=== PATIENT | female | born 1940 | race Caucasian/White ===

== ENCOUNTER 2017-09-01 09:14 | Outpatient (CLI) | payer MEDICARE | END 2017-09-01 09:15 | disposition home or self-care (01) | LOC: BICMAMMO 09:14 | PROVIDERS: ATTEND Internal Medicine | DX: Z12.31 Encounter for screening mammogram for malignant neoplasm of breast (principal) | CPT/HCPCS: 77063; 77067 ==

== ENCOUNTER 2017-11-27 14:07 | Outpatient (CLI) | payer MEDICARE ==
[2017-11-27 15:03] LABS: #Eosinphils 0.3 thou/uL (0.0-0.7); #Lymphocytes 2.5 thou/uL (1.20-3.40); #Monocytes 0.8 thou/uL (0.11-0.59); #Neutrophils 5.6 thou/uL (1.40-6.50); %Basophils 0.5 % (0.0-1.0); %Eosinophils 2.9 % (0.0-10.0); %Lymphocytes 27.3 % (21.0-51.0); %Monocytes 8.5 % (0.0-10.0); %Neutrophils 60.9 % (42.0-75.0); Hemoglobin 13.2 g/dL (12.0-16.0); Mean Corpuscular HGB CONC 34.5 g/dL (32.0-36.0); Mean Corpuscular Hemoglobin 33.5 pg (27.0-31.0); Mean Corpuscular Volume 97.3 fL (78.0-98.0); Mean Platelet Volume 8.3 fL (7.4-10.4); Platelet Count 235 thou/uL (130-400); RBC Distribution Width 12.9 % (11.5-14.5); Red Blood Cell (RBC) Count 3.93 mill/uL (4.20-5.40); White Blood Cell (WBC) Count 9.1 thou/uL (4.8-10.8)
[2017-11-27 15:23] LABS: ALT (SGPT) 16 U/L (8-55); AST (SGOT) 20 U/L (5-34); Albumin 3.8 g/dL (3.4-4.8); Alkaline Phosphatase 78 U/L (40-150); Anion Gap 12 mmol/L (10-20); BUN (Urea Nitrogen) 25 mg/dL (9.8-20.1); Bilirubin, Total 0.4 mg/dL (0.2-1.2); Calc. Creatinine Clearance 0 mL/min (70-130); Calcium 9.5 mg/dL (7.8-10.44); Carbon Dioxide 26 mmol/L (23-31); Chloride 105 mmol/L (98-107); Estimated GFR-MDRD 35; Globulin 2.9 g/dL (2.4-3.5); Glucose 91 mg/dL (83-110); Potassium 4.3 mmol/L (3.5-5.1); Protein, Total 6.7 g/dL (6.0-8.3); Sodium 139 mmol/L (136-145)
== END 2017-11-27 14:08 | disposition home or self-care (01) ==
LOC: LABBT 14:07
PROVIDERS: ATTEND Internal Medicine Cardiovascular Disease
DX: Z01.812 Encounter for preprocedural laboratory examination (principal); R94.39 Abnormal result of other cardiovascular function study
CPT/HCPCS: 80053; 85025

== ENCOUNTER → 2017-12-03 | Day surgery (SDC) | payer MEDICARE ==
[2017-11-27 14:13] VITALS: BMI 29.2
[~2017-12-03] MED LIST: Fentanyl 100 MCG/2 ML VIAL ONE; Heparin 0 ML ONE; Heparin 10,000 UNITS/1 ML VIAL ONE; Iopamidol 370 76% 100 ML VIAL ONE; Iopamidol 370 76% 50 ML VIAL FS ONE; Midazolam HCl 2 mg/2 ml Vial ONE; Protamine Sulfate 50 MG/5 ML VIAL ONE
[2017-12-03 07:13] LABS: ALT (SGPT) 15 U/L (8-55); AST (SGOT) 20 U/L (5-34); Albumin 3.7 g/dL (3.4-4.8); Alkaline Phosphatase 75 U/L (40-150); Anion Gap 11 mmol/L (10-20); BUN (Urea Nitrogen) 30 mg/dL (9.8-20.1); Bilirubin, Total 0.4 mg/dL (0.2-1.2); Calc. Creatinine Clearance 41 mL/min (70-130); Calcium 9.4 mg/dL (7.8-10.44); Carbon Dioxide 27 mmol/L (23-31); Chloride 107 mmol/L (98-107); Estimated GFR-MDRD 42; Globulin 2.6 g/dL (2.4-3.5); Glucose 90 mg/dL (83-110); Potassium 4.2 mmol/L (3.5-5.1); Protein, Total 6.3 g/dL (6.0-8.3); Sodium 141 mmol/L (136-145)
--- NOTE | 2017-12-03 12:57 | DIS ---
This is a discharge summary after undergoing outpatient cardiac catheterization. DISCHARGE DIAGNOSES: 1. Minimal coronary artery disease. 2. Nonsustained ventricular tachycardia seen on pacemaker with reduction from 3 -4 seconds to 1 second on metoprolol 25. 3. Status post dual-pacemaker. 4. Hypertension. 5. Diastolic dysfunction. 6. Hypercholesterolemia. 7. Obstructive sleep apnea. 8. Anxiety. 9. Depressive disorder. 10. Venous insufficiency. 11. Chronic back pain. DISCHARGE MEDICATIONS: Metoprolol will be increased from 25 to 50 mg ER q.a.m. Atorvastatin will be increased from 40 to p.o. 80 mg daily. Continue other medications; aspirin 81 daily, furosemide 20 mg q.a.m., biotin 5000 mcg daily, calcium carbonate, vitamin B12 1000 mcg daily, gabapentin 300 mg q.p.m., lorazepam 1 mg q.8 hours p.r.n., multivitamin daily, naproxen 500 mg b.i.d., nifedipine 60 mg q.a.m., pantoprazole 40 mg daily, valsartan 320 daily, venlafaxine 25 mg daily. DISCHARGE DISPOSITION: The patient will be seen in 2 months with a fasting lipid profile and complete metabolic profile. Pacemaker will be rechecked to assess burden of nonsustained ventricular tachycardia. HOSPITAL COURSE: Ms. Irizarry underwent a cardiac PET scan which was abnormal. This was performed for finding of nonsustained ventricular tachycardia on her pacemaker. At catheterization, she had a 20% mid circumflex, 20% proximal RCA, and 20% distal RCA. Left ventricular function was normal with ejection fraction of 50-55%. Metoprolol will be increased from 25 to 50 daily in the hopes of further suppression of her nonsustained ventricular tachycardia. Her last to LDLs were 95 and 104. With coronary artery disease the goal would be less than 70 and so atorvastatin was increased from 40 to 80 mg daily. Also, she was strongly encouraged to follow a low cholesterol diet. [facility]
== END ==
LOC: CCL 05:56
PROVIDERS: ATTEND Internal Medicine Cardiovascular Disease
PROC: 4A023N7 Measurement of Cardiac Sampling and Pressure, Left Heart, Percutaneous Approach (ICD-10-PCS; principal; 2017-12-03)
PROC: B2111ZZ Fluoroscopy of Multiple Coronary Arteries using Low Osmolar Contrast (ICD-10-PCS; 2017-12-03)
DX: I25.10 Atherosclerotic heart disease of native coronary artery without angina pectoris (principal); I10 Essential (primary) hypertension; E78.5 Hyperlipidemia, unspecified; E78.00 Pure hypercholesterolemia, unspecified; I47.2 Ventricular tachycardia; G47.33 Obstructive sleep apnea (adult) (pediatric); F41.9 Anxiety disorder, unspecified; F32.9 Major depressive disorder, single episode, unspecified; I87.2 Venous insufficiency (chronic) (peripheral); G89.29 Other chronic pain; M54.9 Dorsalgia, unspecified; Z79.82 Long term (current) use of aspirin; Z79.899 Other long term (current) drug therapy; Z88.0 Allergy status to penicillin; Z88.1 Allergy status to other antibiotic agents; Z88.5 Allergy status to narcotic agent; Z88.8 Allergy status to other drugs, medicaments and biological substances; Z95.0 Presence of cardiac pacemaker
CPT/HCPCS: 80053; 85347; 93458; C1769; 99152; J1644; J2250; J2720; J3010

== ENCOUNTER 2018-03-19 10:17 | Outpatient (CLI) | payer MEDICARE ==
--- NOTE | 2018-03-19 10:45 | BD ---
DEXA BONE DENSITY STUDY: Date: 03/19/18 HISTORY: Postmenopausal. FINDINGS: Left Femoral Neck: 0.539 T-Score: -2.8 Total Femur: 0.781 T-Score: -1.3 Left Forearm: Ulnar distal 0.377 T-Score: -1.1 Mid 0.472 T-Score: -2.5 1/3 0.580 T-Score: -1.9 Total 0.456 T-Score: -2.3 IMPRESSION: Osteopenia of left forearm and osteoporosis of left femoral neck. POS: [facility]
== END 2018-03-19 10:18 | disposition home or self-care (01) ==
LOC: BICMAMMO 10:17
PROVIDERS: ATTEND Internal Medicine Rheumatology
DX: Z13.820 Encounter for screening for osteoporosis (principal); M81.0 Age-related osteoporosis without current pathological fracture; M85.832 Other specified disorders of bone density and structure, left forearm; M85.852 Other specified disorders of bone density and structure, left thigh
CPT/HCPCS: 77080

== ENCOUNTER 2018-10-02 20:44 | Emergency (ER) | payer MEDICARE ==
--- NOTE | 2018-10-02 21:52 | CT ---
CT of abdomen and pelvis: 10/02/2018 COMPARISON: 08/14/2013 HISTORY: Right-sided abdominal pain TECHNIQUE: Axial CT imaging at 5 mm intervals from lung bases through pubic symphysis without contras t. Coronal reformatted imaging obtained. FINDINGS: Lack of contrast media limits assessment of the viscera, bowel, vascular structures, and fo r lymphadenopathy. There is a transvenous pacing device present. There is a right total hip arthroplasty. Multilevel pos toperative hardware noted within the lumbar spine. The imaged lung bases are unremarkable. Limited assessment of the liver, gallbladder, spleen, pancrea s, adrenal glands, and kidneys is unremarkable. No nephrolithiasis or hydronephrosis noted on either side. There is extensive diverticulosis of the sigmoid colon. No evidence for diverticulitis, focal bowel i nflammatory change, or bowel obstruction. Hernia mesh noted within the anterior left abdomen. Scattered atherosclerotic calcification of abdomi nal aorta and its branches noted. No acute osseous abnormality. The stomach is mildly distended and fluid-filled. The appendix is nonvisualized. No right lower quadrant inflammatory change is apparent . IMPRESSION: Numerous incidental findings. No free intraperitoneal air, evidence of bowel obstruction, or evidence of obstructive uropathy.
[2018-10-02 22:11] LABS: #Eosinphils 0.3 thou/uL (0.0-0.7); #Lymphocytes 2.6 thou/uL (1.20-3.40); #Monocytes 0.9 thou/uL (0.11-0.59); #Neutrophils 3.9 thou/uL (1.40-6.50); %Eosinophils 3.6 % (0.0-10.0); %Monocytes 11.9 % (0.0-10.0); %Neutrophils 50.6 % (42.0-75.0); Hemoglobin 11.7 g/dL (12.0-16.0); Mean Corpuscular Hemoglobin 31.3 pg (27.0-31.0); Mean Corpuscular Volume 94.8 fL (78.0-98.0); Mean Platelet Volume 7.7 fL (7.4-10.4); Platelet Count 232 thou/uL (130-400); RBC Distribution Width 12.8 % (11.5-14.5); Red Blood Cell (RBC) Count 3.76 mill/uL (4.20-5.40); White Blood Cell (WBC) Count 7.8 thou/uL (4.8-10.8)
[2018-10-02 22:27] LABS: Bacteria/HPF 4+ HPF (None Seen); Bilirubin Negative (Negative); Blood, Urine 1+ (Negative); Glucose, Urine (Dipstick) Normal (Negative); Leukocyte 500 Leu/uL (Negative); Nitrite 2+ (Negative); Protein, Urine (Dipstick) 20 mg/dL (Neg-Trace); Urobilinogen Normal mg/dL (Less than 2); WBC/HPF Greater than 50 HPF (0-3)
[2018-10-02 22:29] LABS: Clarity Cloudy (Clear)
[2018-10-02 22:32] LABS: ALT (SGPT) 31 U/L (8-55); AST (SGOT) 38 U/L (5-34); Albumin 3.4 g/dL (3.4-4.8); Alkaline Phosphatase 76 U/L (40-150); Anion Gap 11 mmol/L (10-20); BUN (Urea Nitrogen) 16 mg/dL (9.8-20.1); Bilirubin, Total 0.4 mg/dL (0.2-1.2); Calc. Creatinine Clearance 0 mL/min (70-130); Carbon Dioxide 23 mmol/L (23-31); Chloride 111 mmol/L (98-107); Estimated GFR-MDRD 49; Globulin 2.3 g/dL (2.4-3.5); Glucose 102 mg/dL (83-110); Lipase 27 U/L (8-78); Potassium 3.5 mmol/L (3.5-5.1); Protein, Total 5.7 g/dL (6.0-8.3); Sodium 141 mmol/L (136-145)
== END 2018-10-02 23:05 | disposition home or self-care (01) ==
LOC: ERS 20:44
DX: N39.0 Urinary tract infection, site not specified (principal); E78.5 Hyperlipidemia, unspecified; K21.9 Gastro-esophageal reflux disease without esophagitis; I10 Essential (primary) hypertension; F32.9 Major depressive disorder, single episode, unspecified; Z79.82 Long term (current) use of aspirin; Z79.899 Other long term (current) drug therapy
CPT/HCPCS: 36415; 74176; 80053; 81003; 81015; 83690; 84484; 85025; 93005

== ENCOUNTER 2018-10-15 14:08 | Outpatient (CLI) | payer MEDICARE ==
--- NOTE | 2018-10-15 16:07 | RAD ---
TWO VIEWS CHEST: Comparison: 11-29-13 History: Cough. FINDINGS: Two views of the chest shows normal sized cardiomediastinal silhouette. The pacemaker is unchanged in position. There is no evidence of consolidation, mass, or pleural effusion. Hardware is seen in the spine. IMPRESSION: No evidence of acute cardiopulmonary disease. POS: [facility]
== END 2018-10-15 14:09 | disposition home or self-care (01) ==
LOC: BICRAD 14:08
PROVIDERS: ATTEND Internal Medicine
DX: R05 Cough (principal)
CPT/HCPCS: 71046

== ENCOUNTER 2018-10-22 14:24 | Outpatient (CLI) | payer MEDICARE ==
--- NOTE | 2018-10-22 14:53 | MMO ---
Bilateral MAMMO Bilat Screen [facility]. CLINICAL HISTORY: Patient is 77 years old and is seen for screening. The patient has no family history of breast cancer. The patient has no personal history of cancer. VIEWS: The views performed were: bilateral craniocaudal with tomosynthesis and bilateral mediolateral oblique with tomosynthesis. FILMS COMPARED: The present examination has been compared to prior imaging studies performed at [facility] on 07/19/2014, 08/23/2015, 08/27/2016 and 09/01/2017. MAMMOGRAM FINDINGS: There are scattered fibroglandular densities. There are stable benign appearing calcifications seen in both breasts. There are also vascular calcifications. There are no suspicious masses, suspicious calcifications, or new areas of architectural distortion. IMPRESSION: THERE IS NO MAMMOGRAPHIC EVIDENCE OF MALIGNANCY. A ROUTINE FOLLOW-UP MAMMOGRAM IN 1 YEAR IS RECOMMENDED. THE RESULTS OF THIS EXAM WERE SENT TO THE PATIENT. ACR BI-RADS Category 2 - Benign finding MAMMOGRAPHY NOTE: 1. A negative mammogram report should not delay a biopsy if a dominant of clinically suspicious mass is present. 2. Approximately 10% to 15% of breast cancers are not detected by mammography. 3. Adenosis and dense breasts may obscure an underlying neoplasm. Reported by: ERIC GARCÍA MD Electonically Signed: [id number]
== END 2018-10-22 14:25 | disposition home or self-care (01) ==
LOC: BICMAMMO 14:24
PROVIDERS: ATTEND Internal Medicine
DX: Z12.31 Encounter for screening mammogram for malignant neoplasm of breast (principal)
CPT/HCPCS: 77063; 77067

== ENCOUNTER 2018-12-09 14:11 | Outpatient (CLI) | payer MEDICARE ==
--- NOTE | 2018-12-09 15:41 | RAD ---
LEFT HAND THREE VIEWS: 12/09/18 HISTORY: Hand pain and swelling. There are mild osteoarthritic changes of the hand with some mild changes of the triscaphe joint. More pronounced changes of the first carpometacarpal joint spaces are seen. Also minimal osteoarthritic c hanges of the distal interphalangeal joints and PIP joints. IMPRESSION: Mild arthritic changes of the hand. POS: [facility]
--- NOTE | 2018-12-09 15:43 | RAD ---
RIGHT HAND THREE VIEWS: 12/09/18 HISTORY: Hand pain and swelling. No injury. There are moderate arthritic changes of the hand. These include some subchondral cystic changes in so me of the carpal bones and mild arthritic changes of the triscaphe and first carpometacarpal joint sp aces as well as some mild arthritic changes of the interphalangeal joints more pronounced at the DIP level. 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 POS: [facility]
== END 2018-12-09 14:12 | disposition home or self-care (01) ==
LOC: BICRAD 14:11
PROVIDERS: ATTEND Internal Medicine
DX: M19.041 Primary osteoarthritis, right hand (principal)
CPT/HCPCS: 36415; 80053; 82607; 82746; 84443; 85027; 86780

== ENCOUNTER 2019-03-02 11:14 | Emergency (ER) | payer MEDICARE ==
[2019-03-02] MEDS ORDERED: Lidocaine 1% w/Epinephrine 1:100K 20 ML VIAL ONE (13:19)
[2019-03-02] MEDS ORDERED: Bacitracin 1 PK ONE (13:43)
--- NOTE | 2019-03-02 14:19 | RAD ---
LEFT FOREARM 2 VIEWS: Date: 03/02/19 HISTORY: Injury from a fall, laceration. FINDINGS: Soft tissue swelling and injury is noted to the ulnar side of the mid and distal forearm. No evidence for acute fracture or dislocation. No metal density foreign body. IMPRESSION: Soft tissue swelling and injury without fracture, dislocation, or metal foreign body. POS: [facility]
== END 2019-03-02 13:58 | disposition home or self-care (01) ==
LOC: ERS 11:14
DX: S51.812A Laceration without foreign body of left forearm, initial encounter (principal); R05 Cough; I10 Essential (primary) hypertension; K21.9 Gastro-esophageal reflux disease without esophagitis; M19.90 Unspecified osteoarthritis, unspecified site; F41.9 Anxiety disorder, unspecified; W18.2XXA Fall in (into) shower or empty bathtub, initial encounter
CPT/HCPCS: 12002

== ENCOUNTER 2019-04-05 15:27 | Outpatient (CLI) | payer MEDICARE ==
--- NOTE | 2019-04-05 16:15 | BD ---
DEXA bone density scan: 04/05/2019 COMPARISON: None HISTORY: Postmenopausal female undergoing screening for osteoporosis. BMD (g/cm2) T-SCORE Forearm Distal third 0.378 -1.1 Middle third 0.466 -2.6 Proximal third 0.588 -1.8 Total 0.454 -2.3 Femoral neck 0.545 -2.7 Total proximal femur 0.771 -1.4 FRAX fracture risk assessment tool was not report as some T-Scores are at or below -2.5 IMPRESSION: Femoral neck osteoporosis correlating with a high risk for fracture. Transcribed Date/Time: 04/05/2019 4:45 PM
== END 2019-04-05 15:28 | disposition home or self-care (01) ==
LOC: BICMAMMO 15:27
PROVIDERS: ATTEND Internal Medicine Rheumatology
DX: M81.0 Age-related osteoporosis without current pathological fracture (principal)
CPT/HCPCS: 77080

== ENCOUNTER 2020-04-23 09:29 | Outpatient (CLI) | payer MEDICARE ==
--- NOTE | 2020-04-23 10:09 | BD ---
EXAM: DEXA bone density examination HISTORY: 79-year-old postmenopausal female for screening COMPARISON: 04/05/2019 FINDINGS: Left distal third forearm--bone mineral density0.588; T score -1.8 Total left distal forearm--bone mineral density 0.464; T score -2.1 Left femoral neck--bone mineral density0.559; T score -2.6 Total proximal left femur--bone mineral density 0.781; T score -1.3 IMPRESSION: Osteoporosis. When compared to the prior examination, the bone density has not changed si gnificantly.
== END 2020-04-23 09:30 | disposition home or self-care (01) ==
LOC: BICMAMMO 09:29
PROVIDERS: ATTEND Internal Medicine Rheumatology
DX: M81.0 Age-related osteoporosis without current pathological fracture (principal)
CPT/HCPCS: 77080

== ENCOUNTER 2020-10-03 09:02 | Outpatient (CLI) | payer MEDICARE | END 2020-10-03 09:03 | disposition home or self-care (01) | LOC: RAD 09:02 | PROVIDERS: ATTEND Orthopaedic Surgery | DX: M75.42 Impingement syndrome of left shoulder (principal) | CPT/HCPCS: 23350; J0171; J2001; Q9967 ==

== ENCOUNTER 2021-04-22 15:23 | Outpatient (CLI) | payer MEDICARE | END 2021-04-22 15:24 | disposition home or self-care (01) | LOC: BICMAMMO 15:23 | PROVIDERS: ATTEND Internal Medicine Rheumatology | DX: M81.0 Age-related osteoporosis without current pathological fracture (principal); M85.832 Other specified disorders of bone density and structure, left forearm | CPT/HCPCS: 77080 ==

== ENCOUNTER 2021-04-25 14:21 | Outpatient (CLI) | payer MEDICARE | END 2021-04-25 14:22 | disposition home or self-care (01) | LOC: BICRAD 14:21 | PROVIDERS: ATTEND Internal Medicine Rheumatology | DX: M54.2 Cervicalgia (principal); M54.50 Low back pain, unspecified; M47.812 Spondylosis without myelopathy or radiculopathy, cervical region; M53.2X2 Spinal instabilities, cervical region; M47.816 Spondylosis without myelopathy or radiculopathy, lumbar region; M43.16 Spondylolisthesis, lumbar region | CPT/HCPCS: 72050; 72100 ==

== ENCOUNTER 2021-09-04 09:01 | Outpatient (CLI) | payer MEDICARE | END 2021-09-04 09:02 | disposition home or self-care (01) | LOC: LABBT 09:01 | PROVIDERS: ATTEND Internal Medicine Cardiovascular Disease | DX: Z01.818 Encounter for other preprocedural examination (principal); I48.0 Paroxysmal atrial fibrillation; Z20.822 Contact with and (suspected) exposure to COVID-19; Z01.812 Encounter for preprocedural laboratory examination | CPT/HCPCS: 80053; 81003; 82565; 85027; 85610; 85730; 86850; 86900; 86901; 93005; 93010; U0003; U0005 ==

== ENCOUNTER 2021-09-04 09:15 | Inpatient (IN) | payer MEDICARE ==
[2021-09-04 10:15] LABS: Bilirubin Neg (Negative); Blood, Urine 25 (Negative); Clarity Cloudy (Clear); Glucose, Urine (Dipstick) Normal (Negative); Ketone, Urine Negative (Negative); Leukocyte 500 (Negative); Nitrite Positive (Negative); Protein, Urine (Dipstick) 15 mg/dl (Neg-Trace); Specific Gravity, Urine 1.015 (1.002-1.036); Urobilinogen Normal mg/dL (Less than 2)
[2021-09-04 10:32] LABS: Hemoglobin 11.2 g/dL (12.0-15.5); Mean Corpuscular HGB CONC 33.3 g/dL (32.0-36.0); Mean Corpuscular Hemoglobin 31.8 pg (27.0-33.0); Mean Corpuscular Volume 95.5 fl (81.6-98.3); Mean Platelet Volume 10.9 fl (7.4-10.4); Platelet Count 207 10x3/uL (150-450); RBC Distribution Width 14.2 % (11.5-14.5); Red Blood Cell (RBC) Count 3.52 10x6/uL (3.90-5.03); White Blood Cell (WBC) Count 7.2 10x3/uL (3.5-10.5)
[2021-09-04 10:35] LABS: INR-International Normal Ratio 1.1; PTT 40.3 sec (22.0-33.0); Prothrombin Time 12.1 sec (9.5-12.1)
[2021-09-04 10:58] LABS: ALT (SGPT) 33 U/L (8-55); AST (SGOT) 40 U/L (5-34); Albumin 3.9 g/dL (3.4-4.8); Alkaline Phosphatase 77 U/L (40-110); Anion Gap 13 mmol/L (10-20); BUN (Urea Nitrogen) 17 mg/dL (9.8-20.1); Bilirubin, Total 0.5 mg/dL (0.2-1.2); Calc. Creatinine Clearance 0 mL/min (70-130); Calcium 9.5 mg/dL (7.8-10.44); Carbon Dioxide 27 mmol/L (23-31); Chloride 105 mmol/L (98-107); Globulin 2.5 g/dL (2.4-3.5); Glucose 109 mg/dL (83-110); Potassium 4.1 mmol/L (3.5-5.1); Protein, Total 6.4 g/dL (5.8-8.1); Sodium 141 mmol/L (136-145)
[2021-09-04 13:10] VITALS: BMI 30.2
[2021-09-09] MEDS ORDERED: Heparin 10,000 UNITS/ 10 ML VIAL ONE (11:25)
[2021-09-09] MEDS ORDERED: Protamine Sulfate 50 MG/5 ML VIAL ONE (11:25)
[2021-09-09] MEDS ORDERED: Clindamycin/D5W 900 mg/50 ml Premix Bag ONE (11:25)
[2021-09-09] MEDS ORDERED: PROPOFOL 200 MG/20 ML VIAL ONE (11:57)
[2021-09-09] MEDS ORDERED: PHENYLEPHRINE-NS 100 MCG/ML 10 ML SYRINGE ONE (11:57)
[2021-09-09] MEDS ORDERED: Dexamethasone 20 MG/5 ML VIAL ONE (11:57)
[2021-09-09] MEDS ORDERED: Rocuronium Bromide 10 MG/ML (10ML VIAL) ONE (11:57)
[2021-09-09] MEDS ORDERED: Ketorolac Tromethamine 30 MG/ML VIAL ONE (11:57)
[2021-09-09] MEDS ORDERED: Lidocaine 1% PF 5 ML VIAL ONE (11:57)
[2021-09-09] MEDS ORDERED: Glycopyrrolate 0.2 MG/ML 5 ML SYRINGE ONE (11:57)
[2021-09-09] MEDS ORDERED: Ondansetron PF 4 MG/2 ML Vial ONE (11:57)
[2021-09-09] MEDS ORDERED: SUGAMMADEX SODIUM 200 MG/2 ML VIAL ONE (12:56)
[2021-09-09] MEDS ORDERED: Promethazine HCl 25 MG/ML VIAL ONE (13:37)
[2021-09-09] MEDS ORDERED: Iopamidol 370 76% 100 ML VIAL ONE (13:46)
== END 2021-09-09 16:05 | disposition home or self-care (01) | DRG 274 ==
LOC: SURG A 09-09 08:15
PROVIDERS: ADMIT Internal Medicine Cardiovascular Disease; ATTEND Internal Medicine Cardiovascular Disease
PROC: 02L73DK Occlusion of Left Atrial Appendage with Intraluminal Device, Percutaneous Approach (ICD-10-PCS; principal; 2021-09-09)
PROC: B24BZZ4 Ultrasonography of Heart with Aorta, Transesophageal (ICD-10-PCS; 2021-09-09)
PROC: B24BZZ4 Ultrasonography of Heart with Aorta, Transesophageal (ICD-10-PCS; 2021-09-09)
DX: I48.0 Paroxysmal atrial fibrillation (principal); Z00.6 Encounter for examination for normal comparison and control in clinical research program; Z20.822 Contact with and (suspected) exposure to COVID-19; I08.1 Rheumatic disorders of both mitral and tricuspid valves; Z96.649 Presence of unspecified artificial hip joint; Z79.01 Long term (current) use of anticoagulants; Z87.19 Personal history of other diseases of the digestive system; Z79.899 Other long term (current) drug therapy; Z79.82 Long term (current) use of aspirin; Z88.1 Allergy status to other antibiotic agents; Z88.5 Allergy status to narcotic agent; Z88.0 Allergy status to penicillin; Z88.8 Allergy status to other drugs, medicaments and biological substances; Z90.89 Acquired absence of other organs; Z95.0 Presence of cardiac pacemaker; Z98.890 Other specified postprocedural states; Z85.828 Personal history of other malignant neoplasm of skin
CPT/HCPCS: 33340; 36430; 80053; 81003; 85027; 85347; 85610; 85730; 86850; 86900; 86901; 93306; 93312; C1759; C1760; J1100; J1644; J1885; J2405; J2550; J2704; J2720; J3490; Q9967; U0003; U0005

== ENCOUNTER 2021-10-28 11:01 | Outpatient (CLI) | payer MEDICARE ==
[2021-10-28 13:25] LABS: Hemoglobin 11.4 g/dL (12.0-15.5); Mean Corpuscular HGB CONC 32.7 g/dL (32.0-36.0); Mean Corpuscular Hemoglobin 31.5 pg (27.0-33.0); Mean Corpuscular Volume 96.4 fl (81.6-98.3); Mean Platelet Volume 11.2 fl (7.4-10.4); Platelet Count 217 10x3/uL (150-450); RBC Distribution Width 14.7 % (11.5-14.5); Red Blood Cell (RBC) Count 3.62 10x6/uL (3.90-5.03); White Blood Cell (WBC) Count 6.7 10x3/uL (3.5-10.5)
[2021-10-28 14:08] LABS: Anion Gap 13 mmol/L (10-20); BUN (Urea Nitrogen) 17 mg/dL (9.8-20.1); Calc. Creatinine Clearance 0 mL/min (70-130); Calcium 9.3 mg/dL (7.8-10.44); Carbon Dioxide 26 mmol/L (23-31); Chloride 107 mmol/L (98-107); Estimated GFR 49; Glucose 95 mg/dL (83-110); Potassium 4.6 mmol/L (3.5-5.1); Sodium 141 mmol/L (136-145)
== END 2021-10-28 11:02 | disposition home or self-care (01) ==
LOC: LABBT 11:01
PROVIDERS: ATTEND Internal Medicine Cardiovascular Disease
DX: Z01.812 Encounter for preprocedural laboratory examination (principal); Z20.822 Contact with and (suspected) exposure to COVID-19
CPT/HCPCS: 80048; 85027; 87811

== ENCOUNTER 2021-11-01 06:03 | Day surgery (SDC) | payer MEDICARE ==
[2021-10-31 09:29] VITALS: BMI 28.3
[2021-11-01] MEDS ORDERED: Propofol 500 MG/50 ML VIAL ONE (07:09)
[2021-11-01] MEDS ORDERED: Ketamine 50 MG/ML (10ML VIAL) ONE (07:09)
[2021-11-02] MEDS ORDERED: Clopidogrel Bisulfate 75 MG TAB PO SCH (09:00)
== END 2021-11-01 09:51 | disposition home or self-care (01) ==
LOC: SDC 06:03
PROVIDERS: ATTEND Internal Medicine Cardiovascular Disease
PROC: B24BZZ4 Ultrasonography of Heart with Aorta, Transesophageal (ICD-10-PCS; principal; 2021-11-01)
DX: I48.0 Paroxysmal atrial fibrillation (principal); I08.0 Rheumatic disorders of both mitral and aortic valves; I70.0 Atherosclerosis of aorta; I49.5 Sick sinus syndrome; E78.5 Hyperlipidemia, unspecified; K58.9 Irritable bowel syndrome, unspecified; M10.9 Gout, unspecified; Z79.02 Long term (current) use of antithrombotics/antiplatelets; Z79.82 Long term (current) use of aspirin; Z79.83 Long term (current) use of bisphosphonates; Z79.899 Other long term (current) drug therapy; Z88.0 Allergy status to penicillin; Z88.1 Allergy status to other antibiotic agents; Z88.5 Allergy status to narcotic agent; Z88.8 Allergy status to other drugs, medicaments and biological substances; Z86.73 Personal history of transient ischemic attack (TIA), and cerebral infarction without residual deficits; Z95.0 Presence of cardiac pacemaker
CPT/HCPCS: 93312; J2704

== ENCOUNTER 2022-04-04 06:27 | Day surgery (SDC) | payer MEDICARE ==
[2022-04-03 09:47] VITALS: BMI 27.0
[2022-04-04] MEDS ORDERED: PROPOFOL 20 ML ONE (08:20)
== END 2022-04-04 10:05 | disposition home or self-care (01) ==
LOC: SDC 06:27
PROVIDERS: ATTEND Internal Medicine Cardiovascular Disease
PROC: B246ZZ4 Ultrasonography of Right and Left Heart, Transesophageal (ICD-10-PCS; principal; 2022-04-04)
DX: I48.0 Paroxysmal atrial fibrillation (principal); I08.1 Rheumatic disorders of both mitral and tricuspid valves; Z79.02 Long term (current) use of antithrombotics/antiplatelets; Z79.82 Long term (current) use of aspirin; Z79.83 Long term (current) use of bisphosphonates; Z79.899 Other long term (current) drug therapy; Z88.0 Allergy status to penicillin; Z88.1 Allergy status to other antibiotic agents; Z88.5 Allergy status to narcotic agent; Z88.8 Allergy status to other drugs, medicaments and biological substances; Z91.013 Allergy to seafood; Z95.818 Presence of other cardiac implants and grafts
CPT/HCPCS: 93312; J2704

== ENCOUNTER 2022-05-20 13:25 | Outpatient (CLI) | payer MEDICARE | END 2022-05-20 13:26 | disposition home or self-care (01) | LOC: BICMAMMO 13:25 | PROVIDERS: ATTEND Internal Medicine Rheumatology | DX: M81.0 Age-related osteoporosis without current pathological fracture (principal) | CPT/HCPCS: 77080 ==

== ENCOUNTER 2022-08-19 19:30 | Outpatient (CLI) | payer MEDICARE | END 2022-08-19 19:31 | disposition home or self-care (01) | LOC: SLEEPLAB 19:30 | PROVIDERS: ATTEND Internal Medicine Critical Care Medicine | DX: G47.33 Obstructive sleep apnea (adult) (pediatric) (principal) | CPT/HCPCS: 95810 ==

== ENCOUNTER 2022-11-20 19:00 | Outpatient (CLI) | payer MEDICARE | END 2022-11-20 19:01 | disposition home or self-care (01) | LOC: SLEEPLAB 19:00 | PROVIDERS: ATTEND Internal Medicine Critical Care Medicine | DX: G47.33 Obstructive sleep apnea (adult) (pediatric) (principal); R06.83 Snoring; G47.10 Hypersomnia, unspecified; E66.9 Obesity, unspecified; G47.61 Periodic limb movement disorder; Z68.25 Body mass index [BMI] 25.0-25.9, adult | CPT/HCPCS: 95811 ==

== ENCOUNTER 2022-11-29 09:50 | Emergency (ER) | payer MEDICARE ==
[2022-11-29] MEDS ORDERED: Boostrix 0.5 ML (Tdap) VIAL (>/=7 yrs of age) ONE (11:49)
[2022-11-29] MEDS ORDERED: Ketorolac Tromethamine 30 MG/ML VIAL ONE (11:49)
== END 2022-11-29 13:03 | disposition home or self-care (01) ==
LOC: ERS 09:50
DX: S51.811A Laceration without foreign body of right forearm, initial encounter (principal); S01.111A Laceration without foreign body of right eyelid and periocular area, initial encounter; I10 Essential (primary) hypertension; E78.5 Hyperlipidemia, unspecified; K21.9 Gastro-esophageal reflux disease without esophagitis; Z79.899 Other long term (current) drug therapy; Z23 Encounter for immunization; W01.10XA Fall on same level from slipping, tripping and stumbling with subsequent striking against unspecified object, initial encounter
CPT/HCPCS: 70450; 70486; 90471; 90715; 96372; J1885

== ENCOUNTER 2023-10-07 12:54 | Outpatient (CLI) | payer MEDICARE | END 2023-10-07 12:55 | disposition home or self-care (01) | LOC: BICRAD 12:54 | PROVIDERS: ATTEND Nurse Practitioner Family | DX: I48.0 Paroxysmal atrial fibrillation (principal) | CPT/HCPCS: 71046 ==

== ENCOUNTER 2024-04-12 14:31 | Observation (INO) | payer MEDICARE ==
[~2024-04-12 14:31] MED LIST changes: -Fentanyl 100 MCG/2 ML VIAL ONE; -Heparin 0 ML ONE; -Heparin 10,000 UNITS/1 ML VIAL ONE; -Iopamidol 370 76% 100 ML VIAL ONE; -Iopamidol 370 76% 50 ML VIAL FS ONE; +Iopamidol-370 76% 500 ML MDV (1 ML CHARGE) ONE; -Midazolam HCl 2 mg/2 ml Vial ONE; -Protamine Sulfate 50 MG/5 ML VIAL ONE
[2024-04-12 14:47] LABS: #Basophils 0.06 10x3/uL (0.0-0.2); %Basophils 0.8 % (0.0-1.0); %Eosinophils 1.3 % (0.0-10.0); %Lymphocytes 19.5 % (21.0-51.0); %Monocytes 8.9 % (0.0-10.0); %Neutrophils 68.2 % (42.0-75.0); Hematocrit 37.7 % (36.0-47.0); Hemoglobin 12.9 g/dL (12.0-16.0); Mean Corpuscular HGB CONC 34.2 g/dL (32.0-36.0); Mean Corpuscular Hemoglobin 32.2 pg (27.0-31.0); Mean Platelet Volume 10.1 fL (7.4-10.4); Platelet Count 227 10x3/uL (130-400); RBC Distribution Width 14.6 % (11.5-14.5); Red Blood Cell (RBC) Count 4.01 mill/uL (4.20-5.40)
[2024-04-12 15:10] LABS: INR-International Normal Ratio 1.1; PTT 30.4 sec (22.9-36.1); Prothrombin Time 14.6 sec (12.0-14.7)
[2024-04-12 15:14] LABS: Alcohol Less than 10.0 mg/dL (Less than 10)
[2024-04-12 15:17] LABS: ALT (SGPT) 22 U/L (Less than 34); AST (SGOT) 35 U/L (11-34); Albumin 3.4 g/dL (3.1-4.5); Alkaline Phosphatase 103 U/L (40-110); Anion Gap 11 mmol/L (10-20); BUN (Urea Nitrogen) 16 mg/dL (9.8-20.1); Bilirubin, Total 0.7 mg/dL (0.3-1.2); Calc. Creatinine Clearance 0 mL/min (70-130); Calcium 9.2 mg/dL (7.8-10.44); Carbon Dioxide 25 mmol/L (23-31); Chloride 109 mmol/L (98-107); Estimated GFR 54; Globulin 3.3 g/dL (2.4-3.5); Glucose 105 mg/dL (83-110); Lipase 9 U/L (8-78); Potassium 4.2 mmol/L (3.5-5.1); Protein, Total 6.7 g/dL (5.8-8.1); Sodium 141 mmol/L (136-145)
[2024-04-12 15:19] LABS: Troponin I Less than 0.010 ng/mL (< 0.028)
[2024-04-12] MEDS ORDERED: Acetaminophen 500 MG TAB ONE (16:00)
[2024-04-12] MEDS ORDERED: Ondansetron PF 4 MG/2 ML Vial IVP PRN (18:57)
[2024-04-12 18:58] LABS: Bacteria/HPF None Seen HPF (None Seen); Bilirubin Negative (Negative); Blood, Urine Negative (Negative); CAUTI Indications for Culture Pelvic or flank pain; Clarity Clear (Clear); Glucose, Urine (Dipstick) Normal (Negative); Ketone, Urine 10 mg/dL (Negative); Leukocyte Negative Leu/uL (Negative); Nitrite Negative (Negative); Protein, Urine (Dipstick) Negative (Neg-Trace); RBC/HPF 0-3 HPF (0-3); Squamous Epithelial 0-3 HPF (0-3); Urobilinogen Normal mg/dL (Less than 2); WBC/HPF 0-3 HPF (0-3); pH, Urine 7.5 (5.0-9.0)
[2024-04-12 18:59] LABS: Urine Culture Reflex No No
[2024-04-12 19:07] LABS: Amphetamine Not Detected (NotDetected); Barbiturates Screen Not Detected (NotDetected); Benzodiazepine Screen Not Detected (NotDetected); Cocaine Metabolite Screen Not Detected (NotDetected); Methadone Not Detected (NotDetected); Methamphetamine Not Detected (NotDetected); Opiate Screen Not Detected (NotDetected); Oxycodone Screen Not Detected (NotDetected); Phencyclidine (PCP) Not Detected (NotDetected); THC/Cannabinoid Screen Not Detected (NotDetected); Tricyclic Screen Not Detected (NotDetected)
[2024-04-12 19:23] VITALS: BMI 23.8
[2024-04-13] MEDS: Melatonin 3 MG TAB PO SCH (00:35)
[2024-04-13] MEDS: Acetaminophen 500 MG TAB PO PRN (00:38)
[2024-04-13 05:40] LABS: #Basophils 0.04 10x3/uL (0.0-0.2); %Basophils 0.5 % (0.0-1.0); %Eosinophils 0.4 % (0.0-10.0); %Lymphocytes 30.6 % (21.0-51.0); %Monocytes 9.8 % (0.0-10.0); %Neutrophils 58.2 % (42.0-75.0); Hematocrit 30.6 % (36.0-47.0); Hemoglobin 10.3 g/dL (12.0-16.0); Mean Corpuscular HGB CONC 33.7 g/dL (32.0-36.0); Mean Corpuscular Hemoglobin 32.1 pg (27.0-31.0); Mean Corpuscular Volume 95.3 fL (78.0-98.0); Mean Platelet Volume 10.2 fL (7.4-10.4); Platelet Count 175 10x3/uL (130-400); RBC Distribution Width 14.3 % (11.5-14.5); Red Blood Cell (RBC) Count 3.21 mill/uL (4.20-5.40)
[2024-04-13 06:03] LABS: Chloride 107 mmol/L (98-107); Potassium 3.7 mmol/L (3.5-5.1); Sodium 136 mmol/L (136-145)
[2024-04-13 06:04] LABS: Calcium 8.3 mg/dL (7.8-10.44); Glucose 81 mg/dL (83-110)
[2024-04-13 06:06] LABS: Anion Gap 9 mmol/L (10-20); Carbon Dioxide 24 mmol/L (23-31)
[2024-04-13 06:08] LABS: Calc. Creatinine Clearance 41 mL/min (70-130); Estimated GFR 63
[2024-04-13 06:09] LABS: BUN (Urea Nitrogen) 21 mg/dL (9.8-20.1)
[2024-04-13 11:35] LABS: #Basophils 0.05 10x3/uL (0.0-0.2); %Basophils 0.6 % (0.0-1.0); %Eosinophils 1.3 % (0.0-10.0); %Lymphocytes 33.1 % (21.0-51.0); %Monocytes 10.1 % (0.0-10.0); %Neutrophils 54.7 % (42.0-75.0); Hematocrit 32.7 % (36.0-47.0); Mean Corpuscular HGB CONC 33.6 g/dL (32.0-36.0); Mean Corpuscular Hemoglobin 32.5 pg (27.0-31.0); Mean Corpuscular Volume 96.7 fL (78.0-98.0); Mean Platelet Volume 9.9 fL (7.4-10.4); Platelet Count 192 10x3/uL (130-400); RBC Distribution Width 14.6 % (11.5-14.5); Red Blood Cell (RBC) Count 3.38 mill/uL (4.20-5.40)
[2024-04-14] MEDS: Heparin 5,000 UNITS/ML VIAL SC SCH (09:46)
[2024-04-14 11:49] VITALS: BP 111/62; TEMP 98.7
== END 2024-04-14 13:08 | disposition home health service (06) ==
LOC: ERS 14:31 → T4-A 17:45 → INTOOBSV 17:45
PROVIDERS: ADMIT Surgery; ATTEND Surgery
DX: S70.11XA Contusion of right thigh, initial encounter (principal); E78.5 Hyperlipidemia, unspecified; K21.9 Gastro-esophageal reflux disease without esophagitis; Z95.0 Presence of cardiac pacemaker; Z90.89 Acquired absence of other organs; Z90.49 Acquired absence of other specified parts of digestive tract; Z88.8 Allergy status to other drugs, medicaments and biological substances; Z88.1 Allergy status to other antibiotic agents; Z88.0 Allergy status to penicillin; Z88.5 Allergy status to narcotic agent; Z91.013 Allergy to seafood; Z79.82 Long term (current) use of aspirin; Z79.1 Long term (current) use of non-steroidal anti-inflammatories (NSAID); Z79.02 Long term (current) use of antithrombotics/antiplatelets; Z79.899 Other long term (current) drug therapy; W19.XXXA Unspecified fall, initial encounter
CPT/HCPCS: 70450; 70486; 72125; 73000; 73502; 75635; 80048; 80053; 80306; 80307; 81001; 83690; 84484; 85018; 85025 ×3; 85610; 85730; 86850; 86900; 86901; 93005; 94760; 96372; 97116; 97530 ×2; 97535; 99291; G0378 ×4; G0390; J1644; Q9967; 36415

== ENCOUNTER 2025-01-27 19:09 | Inpatient (IN) | payer MEDICARE ==
[2025-01-27 19:39] LABS: #Basophils 0.05 10x3/uL (0.0-0.2); #Eosinophils 0.18 10x3/uL (0.0-0.7); #Monocytes 0.78 10x3/uL (0.11-0.59); #Neutrophils 6.77 10x3/uL (1.40-6.50); %Basophils 0.5 % (0.0-1.0); %Eosinophils 1.8 % (0.0-10.0); %Lymphocytes 21.2 % (21.0-51.0); %Monocytes 7.9 % (0.0-10.0); %Neutrophils 68.3 % (42.0-75.0); Hematocrit 40.7 % (36.0-47.0); Hemoglobin 13.5 g/dL (12.0-16.0); Mean Corpuscular Hemoglobin 31.2 pg (27.0-31.0); Mean Corpuscular Volume 94.0 fL (78.0-98.0); Platelet Count 194 10x3/uL (130-400); Red Blood Cell (RBC) Count 4.33 mill/uL (4.20-5.40); White Blood Cell (WBC) Count 9.91 10x3/uL (4.8-10.8)
[2025-01-27 19:52] LABS: INR-International Normal Ratio 1.0; PTT 37.0 sec (22.9-36.1); Prothrombin Time 13.7 sec (12.0-14.7)
[2025-01-27 19:58] LABS: ALT (SGPT) 16 U/L (Less than 34); AST (SGOT) 24 U/L (11-34); Albumin 3.7 g/dL (3.1-4.5); Alkaline Phosphatase 92 U/L (40-110); Anion Gap 16 mmol/L (10-20); BUN (Urea Nitrogen) 26 mg/dL (9.8-20.1); Bilirubin, Total 0.4 mg/dL (0.3-1.2); Calc. Creatinine Clearance 0 mL/min (70-130); Calcium 9.3 mg/dL (7.8-10.44); Carbon Dioxide 25 mmol/L (23-31); Chloride 106 mmol/L (98-107); Globulin 3.4 g/dL (2.4-3.5); Glucose 107 mg/dL (83-110); Potassium 4.4 mmol/L (3.5-5.1); Sodium 143 mmol/L (136-145)
[2025-01-27] MEDS ORDERED: Pantoprazole 40 MG DR.TAB ONE (22:54)
[2025-01-28] MEDS ORDERED: hydrALAZINE 20 MG/ML VIAL ONE ×2 (00:17→04:46)
[2025-01-28] MEDS ORDERED: Glucagon 1 MG/ML KIT IM PRN (01:06)
[2025-01-28] MEDS ORDERED: Dextrose 50% Abboject 50 ML SYRINGE SLOW IVP PRN (01:06)
[2025-01-28] MEDS ORDERED: Ondansetron PF 4 MG/2 ML Vial IVP PRN (01:06)
[2025-01-28] MEDS ORDERED: Acetaminophen 325 MG TAB PO PRN (01:06)
[2025-01-28 01:15] VITALS: BMI 24.2
[2025-01-28] MEDS: Valsartan 80 MG TAB PO SCH ×2 (02:02→20:14)
[2025-01-28] MEDS ORDERED: Acetaminophen 325 MG TAB ONE (02:33)
[2025-01-28] MEDS: Acetaminophen 325 MG TAB PO SCH (02:41)
[2025-01-28 04:39] LABS: #Basophils 0.05 10x3/uL (0.0-0.2); #Eosinophils Less than 0.03 10x3/uL (0.0-0.7); #Monocytes 0.67 10x3/uL (0.11-0.59); #Neutrophils 7.36 10x3/uL (1.40-6.50); %Basophils 0.5 % (0.0-1.0); %Eosinophils 0.1 % (0.0-10.0); %Lymphocytes 17.5 % (21.0-51.0); %Monocytes 6.8 % (0.0-10.0); %Neutrophils 74.8 % (42.0-75.0); Hematocrit 42.3 % (36.0-47.0); Hemoglobin 14.4 g/dL (12.0-16.0); Mean Corpuscular Hemoglobin 31.3 pg (27.0-31.0); Mean Corpuscular Volume 92.0 fL (78.0-98.0); Platelet Count 193 10x3/uL (130-400); Red Blood Cell (RBC) Count 4.60 mill/uL (4.20-5.40); White Blood Cell (WBC) Count 9.84 10x3/uL (4.8-10.8)
[2025-01-28 04:50] LABS: Anion Gap 15 mmol/L (10-20); BUN (Urea Nitrogen) 19 mg/dL (9.8-20.1); Calc. Creatinine Clearance 47 mL/min (70-130); Calcium 9.4 mg/dL (7.8-10.44); Carbon Dioxide 23 mmol/L (23-31); Chloride 108 mmol/L (98-107); Glucose 123 mg/dL (83-110); Potassium 4.0 mmol/L (3.5-5.1); Sodium 142 mmol/L (136-145)
[2025-01-28] MEDS: hydrALAZINE 20 MG/ML VIAL SLOW IVP PRN (04:52)
[2025-01-28] MEDS ORDERED: Methocarbamol 500 MG TAB ONE (05:33)
[2025-01-28] MEDS: Methocarbamol 500 MG TAB PO SCH (05:35)
[2025-01-28] MEDS ORDERED: BIOTIN 2500 MCG PO SCH (09:00)
[2025-01-28] MEDS: CO Q-10 CAPSULE 100 MG PO SCH (09:45)
[2025-01-28] MEDS: Cyanocobalamin (Vitamin B-12) 1,000 MCG TAB PO SCH (09:45)
[2025-01-28] MEDS: Calcium Carbonate 600 MG + Vit D TAB PO SCH (09:45)
[2025-01-28] MEDS: Ezetimibe 10 MG TAB PO SCH (09:45)
[2025-01-28] MEDS: Multivitamin W/ Minerals 1 TAB PO SCH (09:45)
[2025-01-28] MEDS: Metoprolol Succinate XL 50 MG ER.TAB PO SCH (09:45)
[2025-01-28] MEDS: Rosuvastatin 5 MG TAB PO SCH (09:45)
[2025-01-28] MEDS ORDERED: Aspirin Chewable 81 MG TAB ONE (09:47)
[2025-01-28] MEDS: Amiodarone 200 MG TAB PO SCH (09:48)
[2025-01-28] MEDS ORDERED: Amiodarone 200 MG TAB ONE (09:48)
[2025-01-28] MEDS: Aspirin 81 mg Enteric Coated Tablet PO SCH (09:49)
[2025-01-28] MEDS: Pantoprazole 40 MG DR.TAB PO SCH (20:13)
[2025-01-28] MEDS ORDERED: Valsartan 80 MG TAB PO SCH (21:00)
[2025-01-29 04:15] LABS: #Basophils 0.04 10x3/uL (0.0-0.2); #Eosinophils 0.19 10x3/uL (0.0-0.7); #Monocytes 0.83 10x3/uL (0.11-0.59); #Neutrophils 3.93 10x3/uL (1.40-6.50); %Basophils 0.5 % (0.0-1.0); %Eosinophils 2.5 % (0.0-10.0); %Lymphocytes 34.2 % (21.0-51.0); %Monocytes 10.9 % (0.0-10.0); %Neutrophils 51.6 % (42.0-75.0); Hematocrit 40.2 % (36.0-47.0); Hemoglobin 13.5 g/dL (12.0-16.0); Mean Corpuscular Hemoglobin 31.5 pg (27.0-31.0); Mean Corpuscular Volume 93.9 fL (78.0-98.0); Platelet Count 175 10x3/uL (130-400); Red Blood Cell (RBC) Count 4.28 mill/uL (4.20-5.40); White Blood Cell (WBC) Count 7.61 10x3/uL (4.8-10.8)
[2025-01-29 04:32] LABS: Anion Gap 13 mmol/L (10-20); BUN (Urea Nitrogen) 13 mg/dL (9.8-20.1); Calc. Creatinine Clearance 37 mL/min (70-130); Calcium 8.9 mg/dL (7.8-10.44); Carbon Dioxide 25 mmol/L (23-31); Chloride 108 mmol/L (98-107); Glucose 90 mg/dL (83-110); Potassium 3.8 mmol/L (3.5-5.1); Sodium 142 mmol/L (136-145)
[2025-01-29] MEDS: FLU (Fluad Triv) 25-26 (65UP)PF 45 MCG/0.5 ML Syringe IM ONE (08:44)
[2025-01-30 04:33] LABS: Anion Gap 14 mmol/L (10-20); BUN (Urea Nitrogen) 14 mg/dL (9.8-20.1); Calc. Creatinine Clearance 69 mL/min (70-130); Calcium 7.6 mg/dL (7.8-10.44); Carbon Dioxide 18 mmol/L (23-31); Chloride 109 mmol/L (98-107); Glucose 65 mg/dL (83-110); Potassium 3.9 mmol/L (3.5-5.1); Sodium 137 mmol/L (136-145)
[2025-01-30 07:24] LABS: #Basophils 0.03 10x3/uL (0.0-0.2); #Eosinophils 0.23 10x3/uL (0.0-0.7); #Monocytes 0.63 10x3/uL (0.11-0.59); #Neutrophils 2.95 10x3/uL (1.40-6.50); %Basophils 0.5 % (0.0-1.0); %Eosinophils 4.1 % (0.0-10.0); %Lymphocytes 31.7 % (21.0-51.0); %Monocytes 11.2 % (0.0-10.0); %Neutrophils 52.3 % (42.0-75.0); Hematocrit 27.9 % (36.0-47.0); Hemoglobin 9.1 g/dL (12.0-16.0); Mean Corpuscular Hemoglobin 32.2 pg (27.0-31.0); Mean Corpuscular Volume 98.6 fL (78.0-98.0); Platelet Count 125 10x3/uL (130-400); Red Blood Cell (RBC) Count 2.83 mill/uL (4.20-5.40); White Blood Cell (WBC) Count 5.64 10x3/uL (4.8-10.8)
[2025-01-30] MEDS: Enoxaparin 40 MG (0.4 mL) SYRINGE SC SCH (08:47)
[2025-01-30] MEDS: Amiodarone 200 MG TAB PO SCH (08:48)
[2025-01-30] MEDS ORDERED: HYDROcodone/Acetaminophen 5/325 mg Tablet PO PRN (12:43)
[2025-01-30] MEDS: Senokot S 8.6-50 MG TAB PO SCH (21:36)
[2025-01-31] MEDS: Transdermal Patch Removal LIDOCAINE TOP SCH (03:26)
[2025-01-31 04:43] LABS: #Basophils 0.04 10x3/uL (0.0-0.2); #Eosinophils 0.29 10x3/uL (0.0-0.7); #Monocytes 0.66 10x3/uL (0.11-0.59); #Neutrophils 3.02 10x3/uL (1.40-6.50); %Basophils 0.6 % (0.0-1.0); %Eosinophils 4.7 % (0.0-10.0); %Lymphocytes 35.1 % (21.0-51.0); %Monocytes 10.6 % (0.0-10.0); %Neutrophils 48.7 % (42.0-75.0); Hematocrit 32.8 % (36.0-47.0); Hemoglobin 11.1 g/dL (12.0-16.0); Mean Corpuscular Hemoglobin 32.3 pg (27.0-31.0); Mean Corpuscular Volume 95.3 fL (78.0-98.0); Platelet Count 152 10x3/uL (130-400); Red Blood Cell (RBC) Count 3.44 mill/uL (4.20-5.40); White Blood Cell (WBC) Count 6.21 10x3/uL (4.8-10.8)
[2025-01-31 05:00] LABS: Anion Gap 14 mmol/L (10-20); BUN (Urea Nitrogen) 15 mg/dL (9.8-20.1); Calc. Creatinine Clearance 45 mL/min (70-130); Calcium 8.1 mg/dL (7.8-10.44); Carbon Dioxide 24 mmol/L (23-31); Chloride 108 mmol/L (98-107); Glucose 85 mg/dL (83-110); Potassium 3.8 mmol/L (3.5-5.1); Sodium 142 mmol/L (136-145)
[2025-01-31 12:49] VITALS: BP 125/76; TEMP 97.7
== END 2025-01-31 14:53 | DRG 563 ==
LOC: ERS 19:09 → ERHOLD 01-28 00:43 → 2SE 01-28 13:59
PROVIDERS: ADMIT Colon & Rectal Surgery; ATTEND Colon & Rectal Surgery
DX: S42.001A Fracture of unspecified part of right clavicle, initial encounter for closed fracture (principal); S22.069A Unspecified fracture of T7-T8 vertebra, initial encounter for closed fracture; S22.079A Unspecified fracture of T9-T10 vertebra, initial encounter for closed fracture; K21.9 Gastro-esophageal reflux disease without esophagitis; Z96.641 Presence of right artificial hip joint; F10.90 Alcohol use, unspecified, uncomplicated; E78.00 Pure hypercholesterolemia, unspecified; F03.90 Unspecified dementia, unspecified severity, without behavioral disturbance, psychotic disturbance, mood disturbance, and anxiety; F39 Unspecified mood [affective] disorder; Z88.8 Allergy status to other drugs, medicaments and biological substances; Z88.1 Allergy status to other antibiotic agents; Z91.013 Allergy to seafood; Z88.0 Allergy status to penicillin; Z79.899 Other long term (current) drug therapy; Z79.82 Long term (current) use of aspirin; Z90.49 Acquired absence of other specified parts of digestive tract; Z95.0 Presence of cardiac pacemaker; Z23 Encounter for immunization
CPT/HCPCS: 36415; 36416; 70450; 71045; 71250; 72125; 80048; 80053; 84484; 85025; 85610; 85730; 90653; 93005; 94760; 96374; 96375; G0390; J0360; J1650; J3010; J7120